=== PATIENT | male | born 1960 | race Caucasian/White ===

== ENCOUNTER 2024-07-14 15:57 | Outpatient (CLI) | payer OTHER, SELFPAY | END 2024-07-14 15:58 | disposition home or self-care (01) | PROVIDERS: PCP Family Medicine; Visit Provider Family Medicine | DX: E78.2 Mixed hyperlipidemia (principal); Z12.5 Encounter for screening for malignant neoplasm of prostate | CPT/HCPCS: 80061; G0103 ==